=== PATIENT | female | born 1935 ===

== ENCOUNTER 2018-07-01 11:39 | Outpatient (CLI) | payer OTHER | END 2018-07-01 11:51 | disposition home or self-care (01) | LOC: RAD 11:39 | DX: M54.5 Low back pain (principal) ==

== ENCOUNTER → 2018-07-04 | Outpatient (CLI) | payer OTHER | END | disposition home or self-care (01) | LOC: MAMO-SONO 07-01 10:15 → SONOGRAMA 10:09 | DX: M25.551 Pain in right hip (principal) ==